=== PATIENT | female | born 1965 | race African-American/Black ===

== ENCOUNTER 2025-09-12 16:08 | Emergency (ER) | payer MEDICARE, MEDICAID ==
[~2025-09-12] VITALS: Ht 162.6 cm; Wt 82.0 kg
--- NOTE | 2025-09-12 16:32 | ED.PDOC ---
GI ASSESSMENT HPI Comments 59 y/o F, BIBA, with PMHx of lung cancer on oral therapy and HTN presents to the ED for CC of abdominal pain. EMS reports, patient is coming from home where she c/o epigastric abdominal pain with associated nausea and vomiting onset, today (09/12/25). Patient reports, she has similar symptoms every month. Patient relays, that she does currently take Tagrisso 80mg daily for her lung cancer. Symptoms feel identical to prior episodes of this, however patient states that she was never fully evaluated a received a diagnosis for why she gets these recurrent symptoms. She has never been evaluated by GI for this. Patient denies diarrhea, fever, hematemesis, chest pain, shortness of breath, or urinary symptoms. No other symptoms or modifying factors are present at this time. Chief Complaint: Nausea/Vomiting Time Seen by MD: 16:25 Reviewed Notes: Nurses Notes, Dye Maker Notes, Medications, Allergies Allergies: Coded Allergies: NO KNOWN ALLERGIES (Unverified , 09/12/25) Home Meds Active Scripts Metronidazole (Flagyl) 500 Mg Tab, 1 TAB PO TID, #30 TAB Prov:BERTRAM IVORY MD 09/12/25 Ciprofloxacin Hcl (Ciprofloxacin Hcl) 500 Mg Tab, 1 TAB PO BID, #20 TAB Prov:BERTRAM IVORY MD 09/12/25 Information Source: Patient, Emergency Med Personnel Mode of Arrival: EMS Timing: Days Duration: Since onset Prehospital treatment: None Vomitus: Watery Stool: Normal Severity: Moderate Recent: None Recent Hx of: None Pain Location: Epigastric Modifying Factors: Nothing Associated sign and symptoms: Nausea, Vomiting, Abdominal Pain Past Medical History PAST MEDICAL HISTORY: Cancer, HTN Surgical History: Cholecystectomy, Tubal Ligation MANAGER SOCIAL History: Denies all MANAGER SOCIAL Hx Family History Family History: Unknown Social History Smoker: Non-Smoker Alcohol: Denies ETOH Use Drugs: Marijuana Lives In: Home Constitutional: denies: chills, diaphoresis, fatigue, fever, malaise, sweats, weakness, others EENTM: denies: blurred vision, double vision, ear bleeding, ear discharge, ear drainage, ear pain, ear ringing, eye pain, eye redness, hearing loss, mouth pain, mouth swelling, nasal discharge, nose bleeding, nose congestion, nose pain, photophobia, tearing, throat pain, throat swelling, voice changes, others Respiratory: denies: cough, hemoptysis, orthopnea, SOB at rest, shortness of breath, SOB with excertion, stridor, wheezing, others Cardiovascular: denies: chest pain, dizzy spells, diaphoresis, Dyspnea on exertion, edema, irregular heart beat, left arm pain, lightheadedness, palpitations, PND, syncope, others Gastrointestinal: reports: abdominal pain, nausea; denies: abdomen distended, blood streaked bowels, constipated, diarrhea, dysphagia, difficulty swallowing, hematemesis, melena, poor appetite, poor fluid intake, rectal bleeding, rectal pain, vomiting, others Genitourinary: denies: abnormal vagina bleeding, burning, dyspareunia, dysuria, flank pain, frequency, hematuria, incontinence, pain, , vagina discharge, urgency, others Neurological: denies: dizziness, fainting, headache, left sided numbness, left sided weakness, numbness, paresthesia, pre-existing deficit, right sided numbness, right sided weakness, seizure, speech problems, tingling, tremors, weakness, others Musculoskeletal: denies: back pain, gout, joint pain, joint swelling, muscle pain, muscle stiffness, neck pain, others Integumetry: denies: bruises, change in color, change in hair/nails, dryness, laceration, lesions, lumps, rash, wounds, others Allergic/Immunocompromised: denies: Difficulty Healing, Frequent Infections, Hives, Itching, others Hematologic/Lymphatic: denies: anemia, blood clots, easy bleeding, easy bruising, swollen glands, others Endocrine: denies: excessive hunger, excessive sweating, excessive thirst, excessive urination, flushing, intolerance to cold, intolerance to heat, unexplained weight gain, unexplained weight loss, others Psychiatric: denies: anxiety, bipolar disorder, depression, hopeless, panic disorder, schizophrenia, sleepless, suicidal, others All Other Systems: Reviewed and Negative Physical Exam General Appearance: Mild Distress HEENT: Normal ENT Inspection, Pharynx Normal, TMs Normal Neck: Full Range of Motion, Non-Tender, Normal, Normal Inspection Respiratory: Chest Non-Tender, Lungs Clear, No Accessory Muscle Use, No Respiratory Distress, Normal Breath Sounds Cardiovascular: No Edema, No JVD, No Murmur, No Gallop, Normal Peripheral Pulses, Regular Rate/Rhythm Breast Exam: Deferred Gastrointestinal: Epigastric, No Organomegaly, No Pulsatile Mass, Normal Bowel Sounds, Soft, Tenderness Genitalia: Deferred Pelvic: Deferred Rectal: Deferred Extremities: No calf tenderness, Normal capillary refill, Normal inspection, Normal range of motion, Non-tender, No pedal edema Neurologic: Alert, tunneller II-XII nml as Tested, No Motor Deficits, Normal Affect, Normal Mood, No Sensory Deficits Cerebellar Function: Normal Reflexes: Normal Skin: Dry, Normal Color, Warm Lymphatic: No Adenopathy Was a procedure done? Was a procedure done?: No GI differential Dx Differential Diagnosis: Appendicitis, Angina/AL, Constipation, Diverticular disease, Gastritis/PUD, Gastroenteritis, UTI, Dehydration, Electrolyte Imbalance, Food Poisoning, Bacterial, Viral, Renal Failure, Kidney Stone X-Ray, Labs, Meds, VS Vital Signs Date Time Temp Pulse Resp B/P (MAP) Pulse Ox O2 Delivery O2 Flow Rate FiO2 09/12/25 20:00 75 09/12/25 19:30 97.8 82 20 128/69 (88) 95 97.8 09/12/25 18:19 87 18 169/102 09/12/25 17:35 67 20 171/80 09/12/25 17:10 62 09/12/25 17:00 67 20 98 Room Air* 0 21 09/12/25 17:00 96.2 67 20 171/80 (110) 98 96.2 09/12/25 16:17 97.7 70 18 160/84 96 97.7 Lab Test 09/12/25 19:53 09/12/25 17:41 09/12/25 17:00 09/12/25 16:48 Range/Units Troponin I High Sensitivity 5 4 4 </=34 ng/L Urine Color Colorless Yellow Urine Clarity Clear Clear Urine pH 7.0 5.0-9.0 Urine Specific [place] 1.011 1.001-1.035 Urine Protein Negative Negative Urine Ketones 2+ H Negative Urine Blood Negative Negative /uL Urine Nitrite Negative Negative Urine Bilirubin Negative Negative Urine Urobilinogen Normal Negative mg/dL Urine Leukocyte Esterase Negative Negative /uL Urine RBC 2 0 - 4 /hpf Urine Microscopic WBC 1 0-5 /HPF Urine Squamous Epithelial Cells Few <5 /hpf Urine Bacteria Few H None Seen /hpf Urine Glucose 3+ H Normal mg/dL White Blood Count 12.4 H 4.4-10.8 10^3/uL Red Blood Count 5.21 H 4.0-5.20 10^6/uL Hemoglobin 15.3 12.2-16.2 g/dL Hematocrit 46.1 H 36.0-46.0 % Mean Corpuscular Volume 88.6 80.0-100.0 fL Mean Corpuscular Hemoglobin 29.4 28.0-32.0 pg Mean Corpuscular Hemoglobin Concent 33.2 32.0-36.0 g/dL Red Cell Distribution Width 15.5 H 11.8-14.3 % Platelet Count 137 L 140-450 10^3/uL Mean Platelet Volume 8.6 6.9-10.8 fL Neutrophils (%) (Auto) 78.0 37.0-80.0 % Lymphocytes (%) (Auto) 17.7 10.0-50.0 % Monocytes (%) (Auto) 3.7 0.0-12.0 % Eosinophils (%) (Auto) 0.2 0.0-7.0 % Basophils (%) (Auto) 0.4 0.0-2.0 % Neutrophils # (Auto) 9.7 H 1.6-8.6 10 ^3/uL Lymphocytes # (Auto) 2.2 0.4-5.4 10 ^3/uL Monocytes # (Auto) 0.5 0-1.3 10 ^3/uL Eosinophils # (Auto) 0 0-0.8 10 ^3/uL Basophils # (Auto) 0 0-0.2 10 ^3/uL Nucleated Red Blood Cells 0.0 % Sodium Level 142 136-145 mmol/L Potassium Level 3.6 3.5-5.1 mmol/L Chloride Level 112 H 98-107 mmol/L Carbon Dioxide Level 24 20-31 mmol/L Anion Gap 6 5-15 Blood Urea Nitrogen 5 L 9-23 mg/dL Creatinine 0.74 0.550-1.02 mg/dL Glomerular Filtration Rate Calc 93 >90 mL/min BUN/Creatinine Ratio 6.8 L 10.0-20.0 Serum Glucose 172 H 74-106 mg/dL Calcium Level 9.8 8.7-10.4 mg/dL Total Bilirubin 0.5 0.2-1.0 mg/dL Aspartate Amino Transferase (AST) 37 13-40 U/L Alanine Aminotransferase (ALT) 32 7-40 U/L Alkaline Phosphatase 98 46-116 U/L B-Type Natriuretic Peptide 145.93 0-100 pg/mL Total Protein 8.2 5.7-8.2 g/dL Albumin 5.2 H 3.2-4.8 g/dL Lipase 31 12-53 U/L Current Medications Medications (Trade) Dose Ordered Sig/Silvestre Route Start Time Stop Time Status Last Admin Sodium Chloride 1,000 ml @ 1,000 mls/hr Q1H ONCE IV 09/12/25 16:30 09/12/25 17:29 DC 09/12/25 17:27 Morphine Sulfate 4 mg ONCE ONCE IV 09/12/25 16:30 09/12/25 16:31 DC 09/12/25 17:35 Metoclopramide HCl (Reglan Injection) 10 mg ONCE ONCE IV 09/12/25 17:15 09/12/25 17:16 DC 09/12/25 17:34 X-Ray, Labs, Meds, VS Comment Patient with past medical history of lung cancer presenting with diffuse abdominal pain, worsening epigastric region, associated with nausea, vomiting, p.o. intolerance for 1 day. Lab work (CBC, BMP) to evaluate for evidence of severe anemia, electrolyte abnormality including hypokalemia, hyperkalemia, hypernatremia, hyponatremia, hyperglycemia, hypoglycemia, etc. Urinalysis to evaluate for hematuria or infection CT abdomen and pelvis to evaluate for evidence of intra-abdominal emergency including acute appendicitis, diverticulitis, renal stone, SBO, etc. IV morphine IV Zofran Re-evaluate Social determinant surveillance affecting care: Social determinants of health that will affect the patient's care: Poor health literacy (additional time provided an explanation) Poor access to outpatient care/followup (provided outpatient resources) Time of 1ST Reevaluation: 16:55 Reevaluation 1ST: Unchanged Patient Education/Counseling: Diagnosis, Treatment Family Education/Counseling: No Family Present SEPSIS Sepsis Screen Date sepsis recognized/suspect: Sep 12, 2025 Time Sepsis recognized/suspect: 1614 Recent Procedure: No On Antibiotic Therapy: No Respiratory Rate >20: No Heart Rate >90: No Temp<36 C (96.8 F) or >38.3 C: No SBP <90 or MAP <65 mmHG: No New Acute Mental Status Change: No Is the patient on CPAP, BIPAP,: No Physician Orders Electrocardigram (09/12/25 16:28) Electrocardigram (09/12/25 17:28) Electrocardigram (09/12/25 19:28) Ct Ab Pel With Iv Con Only (09/12/25 17:12) Vital Signs Date Time Temp Pulse Resp B/P (MAP) Pulse Ox O2 Delivery O2 Flow Rate FiO2 09/12/25 20:00 75 09/12/25 19:30 97.8 82 20 128/69 (88) 95 97.8 09/12/25 18:19 87 18 169/102 09/12/25 17:35 67 20 171/80 09/12/25 17:10 62 09/12/25 17:00 67 20 98 Room Air* 0 21 09/12/25 17:00 96.2 67 20 171/80 (110) 98 96.2 09/12/25 16:17 97.7 70 18 160/84 96 97.7 Laboratory Tests Test 09/12/25 16:48 White Blood Count 12.4 10^3/uL (4.4-10.8) H Medications Medications Dose Ordered Sig/Silvestre Route Start Time Stop Time Status Last Admin Dose Admin Metoclopramide HCl 10 mg ONCE ONCE IV 09/12/25 17:15 09/12/25 17:16 DC 09/12/25 17:34 Morphine Sulfate 4 mg ONCE ONCE IV 09/12/25 16:30 09/12/25 16:31 DC 09/12/25 17:35 Sodium Chloride 1,000 ml @ 1,000 mls/hr Q1H ONCE IV 09/12/25 16:30 09/12/25 17:29 DC 09/12/25 17:27 Departure 1 Departure Time of Disposition: 20:26 (On reassessment, patient's symptoms now fully resolved. Labs unremarkable and imaging showing mild diverticulitis. Repeat abdominal exam is soft, nontender nondistended. Patient tolerating p.o.. Patient feels comfortable following up outpatient with GI, so discharged on p.o. antibiotics. Given strict return precautions and PMD follow-up.) Impression: Primary Impression: Acute generalized abdominal pain Additional Impressions: Acute nausea with nonbilious vomiting Acute diverticulitis Disposition: HOME / SELF CARE / HOMELESS Condition: Good Additional Instructions: You have diverticulitis today. Take your antibiotics as prescribed and follow- up with GI and your PMD. Slowly advance your diet as tolerated. e-Prescriptions Metronidazole (Flagyl) 500 Mg Tab 1 TAB PO TID, #30 TAB Prov: BERTRAM IVORY MD 09/12/25 Ciprofloxacin Hcl (Ciprofloxacin Hcl) 500 Mg Tab 1 TAB PO BID, #20 TAB Prov: BERTRAM IVORY MD 09/12/25 Discharged With: Self Critical Care Note Critical Care Time?: No Stability Stability form required: No Heart Score Heart Score: Heart Score Response (Comments) Value History N/A 0 EKG N/A 0 Age N/A 0 Risk Factors N/A 0 Troponin N/A 0 Total 0 I personally scribed for BERTRAM IVORY MD ([email or web address]) on 09/12/25 at 16:32. Electronically submitted by Tia Fraire [email or web address]). BERTRAM IVORY MD Sep 12, 2025 16:32
[2025-09-12 17:00] VITALS: PULSE 67; RESP 20; O2SAT 98
[2025-09-12 17:05] LABS: Hematocrit 46.1 % (36.0-46.0); Hemoglobin 15.3 g/dL (12.2-16.2); Mean Corpuscular Hemoglobin 29.4 pg (28.0-32.0); Mean Corpuscular Volume 88.6 fL (80.0-100.0); Nucleated Red Blood Cells % 0.0 %
[2025-09-12 17:16] LABS: Alanine Aminotransferase 32 U/L (7-40); Alkaline Phosphatase 98 U/L (46-116); Anion Gap 6 (5-15); BUN/Creatinine Ratio 6.8 (10.0-20.0); Bilirubin, Total 0.5 mg/dL (0.2-1.0); Calcium 9.8 mg/dL (8.7-10.4); Carbon Dioxide 24 mmol/L (20-31); Lipase 31 U/L (12-53); Potassium 3.6 mmol/L (3.5-5.1); Sodium 142 mmol/L (136-145)
[2025-09-12 17:18] LABS: Albumin 5.2 g/dL (3.2-4.8); Blood Urea Nitrogen 5 mg/dL (9-23); Chloride 112 mmol/L (98-107); Glucose 172 mg/dL (74-106); Total Protein 8.2 g/dL (5.7-8.2)
[2025-09-12] MEDS: ONDANSETRON HCL 4 MG/2 ML VIAL IV ONE (17:25)
[2025-09-12] MEDS: SODIUM CHLORIDE 0.9% 1,000 ML IV ONE (17:27)
[2025-09-12] MEDS: METOCLOPRAMIDE HCL 5MG/ml INJ 2ml VIAL IV ONE (17:34)
[2025-09-12] MEDS: MORPHINE SULFATE 4 MG/ML SYR/VIAL IV ONE (17:35)
[2025-09-12 17:55] LABS: Urine Protein, UAD Negative (Negative)
[2025-09-12] MEDS: IOHEXOL 300 MG/ML 100ML BOTTLE IJ ONE (18:47)
[2025-09-12 19:30] VITALS: BP 128/69; RESP 20; TEMP 97.8; O2SAT 95
--- NOTE | 2025-09-12 19:30 | DVH ---
Exam: CT CT AB PEL WITH IV CON ONLY History: diffuse abd pain Comparison Study: CT ABD/PEL W - IV on DOS: 06/28/25 TECHNIQUE: Multidetector CT of the abdomen and pelvis with IV contrast. Axial, coronal and sagittal multiplanar reformats were obtained from the axial data set by the technologist. Radiation Dose Information: CT Dose: CTDI volume is 11.97 mGy. Dose-length product is 578.8 mGy*cm FINDINGS: The lung bases are clear. Partially visualized heart is unremarkable. Liver, spleen, pancreas and adrenal glands are unremarkable. Status post cholecystectomy. Mild bilateral renal pelviectasis. Otherwise, Kidneys and ureters unremarkable. Mild wall thickening of the Urinary bladder. Uterus is unremarkable. Bilateral tubal ligation. Small Hiatal hernia. Stomach is unremarkable. Small bowel loops are unremarkable. Appendix is unremarkable. Diverticulosis with questionable minimal Fat stranding adjacent to the ascending colon. No evidence of intraperitoneal free air or free fluid. No evidence of aortic aneurysm or dissection. Mild atherosclerotic calcification of the aorta and bilateral iliacs. No significant lymphadenopathy. Minimal body wall edema. Tiny fat containing umbilical hernia. 2 x 2.3 cm lipoma lateral to the right distal external iliac vasculatures and right common femoral artery/vein. Acute osseous abnormalities. IMPRESSION: Colonic diverticulosis with questionable minimal ascending colon diverticulitis. Mild wall thickening of the urinary bladder which May due to inadequate distention. Correlation with urinalysis is recommended to exclude cystitis.
[2025-09-12] MEDS ORDERED: METR-344 PO (19:57)
[2025-09-12] MEDS ORDERED: CIPR500T4 PO (19:57)
[2025-09-12 20:00] VITALS: PULSE 75
--- NOTE | 2025-09-13 06:36 | ECG ---
[facility] Test Date: 2025-09-12 Test Time: 17:10:49 Pat Name: LIDIA MIRAMONTES Department: ED Room: Gender: F User Experience Architect: SARAH : 1965 Requested By: BERTRAM IVORY Order Number: [id number] Reading MD: Manny Mendieta Measurements Intervals [place] Rate: 62 P: 81 [place]: 157 QRS: 48 QRSD: 91 T: 46 QT: 456 QTc: 463 Interpretive Statements Sinus rhythm Electronically Signed On 09-13-2025 15:46:41 PST by Manny Mendieta Please click the below link to view image of tracing.
== END 2025-09-12 20:49 | disposition home or self-care (01) ==
LOC: ER 16:08 → EDBD 16:08 → ER 20:49
DX: K57.32 Diverticulitis of large intestine without perforation or abscess without bleeding (principal); R10.13 Epigastric pain; R11.2 Nausea with vomiting, unspecified; F12.90 Cannabis use, unspecified, uncomplicated; I10 Essential (primary) hypertension; Z79.899 Other long term (current) drug therapy; Z98.51 Tubal ligation status; Z90.49 Acquired absence of other specified parts of digestive tract
CPT/HCPCS: 36415; 74177; 80053; 81001; 83690; 83880; 84484; 85025; 93005; 96361; 96374; 96375; 99285; J2270; J2765; J7030; Q9967